=== PATIENT | female | born 1995 | race Caucasian/White ===

== ENCOUNTER 2018-08-02 06:50 | Inpatient (IN) | payer OTHER ==
[~2018-08-02] VITALS: Ht 162.6 cm; Wt 64.0 kg
[2018-08-02 06:56] VITALS: BP 139/94
--- NOTE | 2018-08-02 06:59 | NUR ---
PT TAKEN TO BED 9
--- NOTE | 2018-08-02 07:05 | NUR ---
PATIENT PRESENTS TO ED WITH ABDOMINAL PAIN, NAUSEA, AND VOMITING.PT STATES ABDOMINAL PAIN STARTED YESTERDAY MORNING AND NAUSEA/VOMITING TODAY. SKIN IS PINK/WARM/DRY; AAOX4 WITH EVEN AND STEADY GAIT; STATES PAIN OF 9/10 AT THIS TIME; VSS; PATIENT POSITIONED FOR COMFORT; HOB ELEVATED; BEDRAILS UP X2; BED DOWN. ER MD MADE AWARE OF PT STATUS.
[2018-08-02] MEDS ORDERED: NACL 0.9% 1,000 ML IV SCH (07:11)
[2018-08-02] MEDS ORDERED: MORPHINE SULFATE 4 MG/ML SYR IVP ONE (07:15)
[2018-08-02] MEDS ORDERED: ONDANSETRON 4 MG/2 ML VIAL IVP ONE (07:15)
[2018-08-02 07:26] LABS: BASOPHILS % (AUTO) 0.3 % (0.0-2.0); EOSINOPHILS # (AUTO) 0.1 K/uL (0-0.4); EOSINOPHILS % (AUTO) 0.9 % (0.0-4.0); HEMATOCRIT 45.6 % (36-48); HEMOGLOBIN 14.9 g/dL (12.0-16.0); LYMPHOCYTES # (AUTO) 2.7 K/uL (2.5-16.5); LYMPHOCYTES % (AUTO) 21.5 % (20.5-51.1); MEAN CORPUSCULAR HEMOGLOBIN 27 pg (27-31); MEAN CORPUSCULAR HGB CONC 33 g/dL (33-37); MEAN CORPUSCULAR VOLUME 82.2 fL (80-94); MONOCYTES # (AUTO) 0.6 K/uL (0.8-1.0); MONOCYTES % (AUTO) 5.1 % (1.7-9.3); NEUTROPHILS % (AUTO) 72.2 % (42.2-75.2); PLATELET COUNT (AUTO) 243 K/uL (140-450); RED BLOOD CELL COUNT(AUTO) 5.55 MIL/uL (4.20-5.40); RED CELL DISTRIBUTION WIDTH 13.6 % (11.6-13.7); WHITE BLOOD COUNT (AUTO) 12.4 K/uL (4.8-10.8)
[2018-08-02 07:28] LABS: APPEARANCE,URINE CLOUDY (CLEAR); BLOOD, URINE 1+ (NEGATIVE); COLOR,URINE YELLOW (YELLOW); UGLUCOSE NEGATIVE (NEGATIVE)
[2018-08-02 07:29] LABS: BILIRUBIN,URINE NEGATIVE (NEGATIVE); LEUKOCYTE ESTERASE ,URINE 2+ (NEGATIVE); NITRITE, URINE POSITIVE (NEGATIVE)
--- NOTE | 2018-08-02 07:29 | NUR ---
ENDORSED TO MICHELLE ANDERSON. DAVIN.
[2018-08-02 07:34] LABS: RBC,URINE 3-10 (FEW) /HPF (0-5)
[2018-08-02 07:35] LABS: WBC,URINE 80-100 /HPF (0-5)
[2018-08-02 07:38] LABS: CARBON DIOXIDE 23.8 mmol/L (21-32); CREATININE 0.6 mg/dL (0.6-1.3); POTASSIUM 3.8 mmol/L (3.5-5.1)
--- NOTE | 2018-08-02 08:16 | NUR ---
Received report from Nigel MARTINEZ. Assumed care of patient. Awaiting lab results. Patient with no complaints. All needs met at this time. Will continue to monitor.
[2018-08-02 08:21] LABS: TOTAL BILIRUBIN 0.9 mg/dL (0.0-1.0)
[2018-08-02 08:22] LABS: ALBUMIN 4.3 g/dL (3.4-5.0)
[2018-08-02] MEDS ORDERED: NACL 0.9% 1,000 ML IV ONE (10:05)
[2018-08-02] MEDS ORDERED: cefTRIAXone 1,000 MG VIAL ONE (10:29)
--- NOTE | 2018-08-02 10:39 | NUR ---
PATIENT REQUESTING FOR PAIN MEDICATION; ER MD RUIZ MADE AWARE; NO NEW ORDERS
[2018-08-02] MEDS ORDERED: MORPHINE SULFATE 4 MG/ML SYR IVP PRN ×2 (10:40→18:00)
--- NOTE | 2018-08-02 11:50 | NUR ---
Patient will be admitted to [facility]. Admited to Med Surg. Will go to room 104B. Belongings list completed. Bedside report to Chapin MARTINEZ.
[2018-08-02] MEDS: DEXT 5% / NACL 0.45% 1,000 ML IV SCH ×2 (12:01→23:31)
[2018-08-02] MEDS ORDERED: ONDANSETRON 4 MG/2 ML VIAL IVP PRN (12:05)
[2018-08-02 12:10] VITALS: BP 118/87
--- NOTE | 2018-08-02 12:10 | NUR ---
PATIENT ADMITTED FROM ED. AMBULATORY TO BED. NO ACUTE DISTRESS NOTED. ALERT AND ORIENTED X4. DENIES FEELING SOB. DENIES N/V AT THIS TIME. C/O ABDOMINAL PAIN, PATIENT MEDICATED IN ED, RESTING AT THIS TIME. CALL LIGHT WITHIN REACH. BED PLACED IN LOW POSITION. UPDATED PATIENT ON CURRENT PLAN OF CARE, IN AGREEMENT.
[2018-08-02] MEDS: MORPHINE SULFATE 4 MG/ML SYR IVP PRN ×2 (14:37→18:33)
--- NOTE | 2018-08-02 14:40 | NUR ---
PATIENT RESTING IN BED, CONTINUED ON IVF. DENIES DISCOMFORT AT THIS TIME. CALL LIGHT WITHIN REACH.
[2018-08-02 16:00] VITALS: BP 109/70
--- NOTE | 2018-08-02 18:14 | NUR ---
PATIENT TAKEN AND BROUGHT BACK FROM CT. AMBULATORY, TRANSPORTED VIA WHEEL CHAIR. NO ACUTE DISTRESS NOTED. PATIENT'S AT BEDSIDE, UPDATED ON CURRENT PLAN OF CARE, IN AGREEMENT.
--- NOTE | 2018-08-02 19:23 | NUR ---
SBAR REPORT GIVEN TO MICHELLE DOWNEY AT PT BEDSIDE. NO ACUTE DISTRESS NOTED. AT BEDSIDE.
--- NOTE | 2018-08-02 19:23 | NUR ---
REPORT RECEIVED FROM TERRA MARTINEZ DAYSHIFT NURSE AT BEDSIDE FOR CONTINUITY OF CARE, PT IN STABLE CONDITION.
[2018-08-02 20:00] VITALS: BP 117/77
--- NOTE | 2018-08-02 20:00 | NUR ---
PT LYING IN BED RESTING A0X4, SKIN INTACT WITH L SITE ON LAC 22G RUNNING D51/2NS. IV SITE INTACT. LUNGS CLEAR AND POSITIVE FOR B/S. PT C/O 6/10 PAIN V/S FOLLOWS T99.7 P 120 B/P 117/77 R 20 02 97% ON R/A. BED LOW AND SIDE RAILS UP X2 CALL ESCOBAR IN REACH AND AT BEDSIDE.
--- NOTE | 2018-08-02 20:10 | NUR ---
PT GIVEN PO/PRN MORPHINE 2MG/1/2ML IVP FOR MODERATE PAIN , WILL CONTINUE TO MONITOR PT FOR EFFECTIVENESS.
--- NOTE | 2018-08-02 22:00 | NUR ---
PT SLEEPING IN BED NO S/S OF PAIN OR DISTRESS NOTED. BED LOW AND CALL ESCOBAR IN REACH.
[2018-08-03] VITALS: BP 113/73
[2018-08-03] MEDS: MORPHINE SULFATE 4 MG/ML SYR IVP PRN ×2 (00:37→09:30)
--- NOTE | 2018-08-03 01:00 | NUR ---
PT SLEEPING IN BED UP TO TOILET X1 WITH STAND BY ASSIST. V/S FOLLOWS T 99.1 P 120 R 18 B/P 113/73 02 98%.
--- NOTE | 2018-08-03 03:45 | NUR ---
PT SLEEPING NO S/S OF PAIN OR DISTRESS NOTED. BED LOW SIDE RAILS UP X2 AND CALL ESCOBAR IN REACH.
[2018-08-03 07:10] LABS: BASOPHILS % (AUTO) 0.2 % (0.0-2.0); EOSINOPHILS # (AUTO) 0.1 K/uL (0-0.4); EOSINOPHILS % (AUTO) 1.3 % (0.0-4.0); HEMATOCRIT 39.8 % (36-48); HEMOGLOBIN 13.1 g/dL (12.0-16.0); LYMPHOCYTES # (AUTO) 2.3 K/uL (2.5-16.5); LYMPHOCYTES % (AUTO) 27.1 % (20.5-51.1); MEAN CORPUSCULAR HEMOGLOBIN 27 pg (27-31); MEAN CORPUSCULAR HGB CONC 33 g/dL (33-37); MEAN CORPUSCULAR VOLUME 82.4 fL (80-94); MONOCYTES # (AUTO) 0.9 K/uL (0.8-1.0); MONOCYTES % (AUTO) 10.2 % (1.7-9.3); NEUTROPHILS # (AUTO) 5.3 K/uL (1.8-7.7); NEUTROPHILS % (AUTO) 61.2 % (42.2-75.2); PLATELET COUNT (AUTO) 202 K/uL (140-450); RED BLOOD CELL COUNT(AUTO) 4.83 MIL/uL (4.20-5.40); WHITE BLOOD COUNT (AUTO) 8.6 K/uL (4.8-10.8)
--- NOTE | 2018-08-03 07:29 | NUR ---
REPORT GIVEN TO JEANE MARTINEZ DAYSHIFT NURSE AT BEDSIDE FOR CONTINUITY OF CARE, PT IN STABLE CONDITION.
--- NOTE | 2018-08-03 07:40 | NUR ---
PATIENT WAS AWAKE, ALERT. RESPIRATION EVEN, UNLABOR ON ROOM AIR. SKIN DRY AND WARM. IV PATENT AND INTACT. COMPLAINED OF ABDOMINAL PAIN 7/10, NON RADIATING, WILL MEDICATE PER ORDER. DENIED N/V. PLAN OF CARE WAS DISCUSSED WITH PATIENT. BED AT LOW POSITION, SIDE RAILS UP. CALL LIGHT WITHIN REACH
[2018-08-03 08:00] VITALS: BP 111/75
--- NOTE | 2018-08-03 08:25 | NUR ---
PATIENT HAS BEEN SCREENED AND CATEGORIZED MODERATE NUTRITION RISK. PATIENT WILL BE SEEN WITHIN 3-5 DAYS OF ADMISSION. 08/04/18 08/06/[address]
[2018-08-03] MEDS ORDERED: PANTOPRAZOLE 40 MG INJ VIAL IVP SCH (09:00)
[2018-08-03] MEDS: DEXT 5% / NACL 0.45% 1,000 ML IV SCH (09:51)
[2018-08-03 09:56] LABS: CARBON DIOXIDE 26.9 mmol/L (21-32); CREATININE 0.5 mg/dL (0.6-1.3); POTASSIUM 3.9 mmol/L (3.5-5.1); TOTAL BILIRUBIN 1.5 mg/dL (0.0-1.0)
[2018-08-03 09:57] LABS: ALBUMIN 3.4 g/dL (3.4-5.0)
--- NOTE | 2018-08-03 10:00 | NUR ---
PATIENT WAS SLEEPING COMFORTABLY. RESPIRATION EVEN, UNLABOR ON ROOM AIR. NO DISTRESS NOTED AT THIS TIME
[2018-08-03 11:17] LABS: CHOL/HDL RATIO 3.4 (1-4.5)
--- NOTE | 2018-08-03 12:05 | NUR ---
PATIENT WAS AWAKE, ALERT. RESPIRATION EVEN, UNLABOR ON ROOM AIR. NO DISTRESS NOTED AT THIS TIME. FAMILY WAS AT BEDSIDE. CALL LIGHT WITHIN REACH
--- NOTE | 2018-08-03 12:56 | NUR ---
CM NOTE PER LEONA OF [facility] (PCP) PH# [phone], PATIENT IS SCHEDULED FOR OUTPATIENT FOLLOW UP APPOINTMENT ON AUGUST 11, 2018 3:10PM AT THE CLINIC [address] [place] [id number]. I GAVE THE PATIENT A COPY OF HER OUTPATIENT FOLLOW UP SCHEDULE.
--- NOTE | 2018-08-03 14:15 | NUR ---
PATIENT WAS AWAKE, ALERT. RESPIRATION EVEN, UNLABOR ON ROOM AIR. NO DISTRESS NOTED AT THIS TIME
--- NOTE | 2018-08-03 15:30 | NUR ---
PATIENT REQUESTED TO LEAVE AMA DUE TO FAMILY EMERGENCY. DR DIEHL WAS MADE AWARE. AMA FORM WAS SIGNED. IV WAS REMOVED, CATHETER INTACT, NO ACTIVE BLEEDING SEEN.
[2018-08-03 16:00] VITALS: BP 113/70
== END 2018-08-03 16:00 | disposition left against medical advice (07) | DRG 282 ==
LOC: MED 06:50 → MTU 11:13
PROVIDERS: ADMIT Internal Medicine; ATTEND Internal Medicine
DX: K85.90 Acute pancreatitis without necrosis or infection, unspecified (principal); R65.11 Systemic inflammatory response syndrome (SIRS) of non-infectious origin with acute organ dysfunction; K86.1 Other chronic pancreatitis; Z53.21 Procedure and treatment not carried out due to patient leaving prior to being seen by health care provider; N39.0 Urinary tract infection, site not specified; Z90.49 Acquired absence of other specified parts of digestive tract
CPT/HCPCS: 36415; 76705; 80053; 81001; 83690; 84703; 85025; 87081; 87086; 87186; 96361; 96365; 96375; 96376; 99285; C9113; J0696; J2270; J2405; J7060; Q0092